=== PATIENT | female | born 1960 | race Caucasian/White ===

== ENCOUNTER 2022-05-23 09:37 | Outpatient (CLI) | payer OTHER ==
[2022-05-23 09:57] LABS: CREATININE 0.6 mg/dL (0.4-1.0); POTASSIUM 4.2 mmol/L (3.5-5.0)
== END 2022-05-23 09:38 | disposition home or self-care (01) ==
LOC: LAB 09:37
PROVIDERS: ATTEND Family Medicine
DX: Z51.81 Encounter for therapeutic drug level monitoring (principal)
CPT/HCPCS: 36415; 82565; 84132; 84295

== ENCOUNTER 2022-06-30 17:06 | Emergency (ER) | payer OTHER ==
--- NOTE | 2022-06-30 18:25 | ED Physician Documentation ---
History of Present Illness - Stated complaint Stated Complaint: RT EYE PX/BLURRINESS - Chief complaint Chief Complaint: Neuro - Additonal information Additional information: 61-year-old female presents emergency department for evaluation of sudden onset blurry vision in the right eye. Symptoms began about 1 PM. Reports she was driving home from lunch when she began to Have cobweb floaters in her right eye. No visual field deficits. She denies any headache, diplopia, slurred speech, facial droop arm or leg weakness. She reports a history of cataract surgery at [facility] about 2 years ago. She states her vision in her left eye is normal but when she looks to the right eye everything is blurry. This is painless. Review of Systems Eyes: reports: Decreased vision. denies: Loss of vision, Photophobia, Discharge, Irritation Ears: reports: Reviewed and negative Nose: reports: Reviewed and negative PD PAST MEDICAL HISTORY - Past Medical History Past Medical History: No - Past Surgical History HEENT: Cataracts - Present Medications Home Medications: Ambulatory Orders Medication Instructions Recorded Confirmed ALPRAZolam [Alprazolam] 0.5 mg PO PRN 06/30/22 Losartan Potassium 25 mg PO 06/30/22 Triamterene/Hydrochlorothiazid PO 06/30/22 [Triamterene-Hctz 37.5-25 mg Cp] - Allergies Allergies/Adverse Reactions: Allergies Allergy/AdvReac Type Severity Reaction Status Date / Time Sulfa (Sulfonamide Allergy Rash Verified 06/30/22 17:12 Antibiotics) - Social History Does the pt smoke?: No Smoking Status: Never smoker PD ED PE EXPANDED - General General: Alert, No acute distress - Eyes Eyes: Abnormal accommodation, EOMI, Other (Left eye ocular pressure 16, right eye ocular pressure 18. PERRLA, EOMI. No hyphema. Limited ultrasound reveals a right retinal detachment.). No: Subconj hemorrhage, Corneal abrasion, Corneal ulcer, Fluorescein uptake, Hyphema - Neuro Neuro: Alert and Oriented X 3, CNII-XII intact, PERRL, Normal gait, Normal finger nose, Normal speech. No: Dyscongugate gaze, Nystagmus Results - Vitals Vitals: Vital Signs - 24 hr 06/30/22 17:10 Temperature 36.8 C Heart Rate 97 Respiratory 20 Rate Blood Pressure 164/99 H O2 Saturation 100 Oxygen O2 Source Room air PD Medical Decision Making - ED course Complexity details: considered differential, d/w patient, d/w senior staff consultant ([facility]) ED course: 61-year-old female presents emergency department for evaluation of sudden painless blurry vision in her right eye that occurred while driving. She describes it as cobwebs. Visual acuity in the left eye is 20/25. She is unable to complete the Snellen chart in her right eye. There were no visual field deficits. She has PERRLA and extraocular movements are preserved. Ocular pressures in the right eye were 18 and 16 in the left eye. Using a bedside ultr asound unfortunately we do determine that she has a right eye retinal detachment. The patient reported to me that she had had cataract surgery at [facility] [address] Patterson[address] Subsequently I was able to contact the after hours physicians environmental services supervisor respectively Drs. Graham and then Dr. Gomez. Neither of these physicians are retinal specialists but they are contacting the retinal specialist and have reported that they will arrange for her to be seen either tomorrow for surgery or Sunday. They both tell me the patient is safe for discharge home and they will personally contact the patient. I have communicated this with the patient and she is comfortable with the discharge plan. She is advised to be n.p.o. after midnight in case she should have surgery tomorrow. Departure - Departure Disposition: Home, Self Care Clinical Impression: Retinal detachment Qualifiers: Laterality: right Qualified Code(s): H33.21 - Serous retinal detachment, right eye Condition: Stable Record reviewed to determine appropriate education?: Yes Comments: You came to the emergency department this evening because you developed sudden blurry vision in your right eye. Using an ultrasound we are able to determine that you do have a right retinal detachment. The pressures in both your eyes were normal. There were no other worrisome findings seen. We were able to contact [facility]. They do see that you are in their system. They are contacting their retinal specialist and you should be receiving a phone call from them tonight to discuss when you will receive the retinal surgery. I do recommend that you have nothing to eat or drink after midnight. If you do not hear from them please return to the emergency department tomorrow.
[2022-06-30 19:33] VITALS: BP 153/99
== END 2022-06-30 19:33 | disposition home or self-care (01) ==
LOC: ED 17:06
DX: H33.21 Serous retinal detachment, right eye (principal)
CPT/HCPCS: 99281; 99284